=== PATIENT | male | born 1985 | race Caucasian/White ===

== ENCOUNTER → 2017-06-17 11:16 | Outpatient (CLI) | payer OTHER, SELFPAY ==
[2017-06-17 12:39] LABS: Erythrocyte Sedimentation Rate 11 mm/hr (0-15)
[2017-06-17 12:52] LABS: Rheumatoid Factor < 10.0 IU/mL (<15)
[2017-06-17 13:02] LABS: Vitamin D,25 Hydroxy 18.8 ng/mL (29.95-100.01)
[2017-06-18 12:08] LABS: SJOGREN'S Anti-SS-A test < 0.2 AI (0.0-0.9); SJOGREN'S Anti-SS-B test < 0.2 AI (0.0-0.9)
[2017-06-18 13:42] LABS: ANTINUCLEAR ANTIBODIES DIRECT Negative (Negative)
[2017-06-18 16:09] LABS: Cytoplasmic Ab (C-ANCA) <1:20 titer (Neg:<1:20)
[2017-06-19 09:02] LABS: Angiotensin Convert Enzyme 57 U/L (14-82); Perinuclear Ab (P-ANCA) <1:20 titer (Neg:<1:20)
== END ==
PROVIDERS: Family Provider Family Medicine; PCP Family Medicine; Visit Provider Psychiatry & Neurology Neurology
DX: H93.19 Tinnitus, unspecified ear (principal); Z79.899 Other long term (current) drug therapy
CPT/HCPCS: 36415; 82164; 82306; 85652; 86038; 86235; 86256; 86431

== ENCOUNTER → 2017-06-29 15:22 | Outpatient (CLI) | payer OTHER, SELFPAY ==
[2017-07-03 20:07] LABS: Lyme IgG P18 Ab Absent (.); Lyme IgG P23 Ab Absent (.); Lyme IgG P28 Ab Absent (.); Lyme IgG P30 Ab Absent (.); Lyme IgG P39 Ab Absent (.); Lyme IgG P41 Ab Present (.); Lyme IgG P45 Ab Absent (.); Lyme IgG P58 Ab Absent (.); Lyme IgG P66 Ab Absent (.); Lyme IgG P93 Ab Absent (.); Lyme IgM P23 Ab Absent (.); Lyme IgM P39 Ab Absent (.); Lyme IgM P41 Ab Absent (.)
[2017-07-04 08:04] LABS: Lyme IgG WB Interpretation Negative (.); Lyme IgM WB Interpretation Negative (.)
== END ==
PROVIDERS: Family Provider Family Medicine; PCP Family Medicine; Visit Provider Psychiatry & Neurology Neurology
DX: R93.0 Abnormal findings on diagnostic imaging of skull and head, not elsewhere classified (principal); H93.19 Tinnitus, unspecified ear
CPT/HCPCS: 36415; 86617

== ENCOUNTER → 2017-07-15 07:20 | Outpatient (CLI) | payer OTHER, SELFPAY ==
--- NOTE | 2017-07-15 07:26 | CT_ITS ---
STUDY: CTA OF THE BRAIN REASON FOR EXAM: Male, 32 years old. AVM RADIATION DOSAGE (If Supplied By Facility): CTDIvol = ( 17.65 ) mGy, DLP = ( 459.79 ) mGycm TECHNIQUE: CT angiography was performed with a multi-detector CT scanner. Data acquisition was obtained from the skull base through the vertex following intravenous administration of ml of . MIP images were reconstructed from the axial data set. Post-processing of the angiographic images was performed, with multiplanar reformation and 3D reconstruction. Individualized dose optimization techniques were used for this CT. COMPARISON: MRI 03/05/2017.. FINDINGS: Normal bilateral petrous carotid arteries. Normal right cavernous carotid artery with a normal supraclinoid bifurcation. Normal left cavernous carotid artery with a normal supraclinoid bifurcation. Normal right A1 segments of the anterior cerebral artery. Normal left A1 segments of the anterior cerebral artery. Normal intact anterior communicating artery (ACOM). Normal bilateral A2 segments of the anterior cerebral arteries. Normal right M1 and M2 segments of the middle cerebral arteries, with a normal M1 bifurcation. Normal left M1 and M2 segments of the middle cerebral arteries, with a normal M1 bifurcation. Normal right posterior communicating artery (PCOM). Normal left posterior communicating artery (PCOM). Normal bilateral vertebral arteries. Normal basilar artery with a normal basilar bifurcation. The visualized bilateral superior cerebellar (SCA) arteries are normal. Normal bilateral P1, P2 and visualized P3 segments of the posterior cerebral arteries. There is no demonstrated aneurysm of the [place]. There is no demonstrated abnormality of the visualized brain. CT/CTA Head W/WO Contrast IMPRESSION: Normal [place] without a demonstrated aneurysm or hemodynamically significant stenosis. Electronically Signed: Jean Salazar MD at 18:20 EDT , Service support ,
--- NOTE | 2017-07-15 07:26 | CT_ITS ---
STUDY: CTA NECK WITH CONTRAST REASON FOR EXAM: Male, 32 years old. Right ear tinnitis, r/o cascular malformation. RADIATION DOSAGE (If Supplied By Facility): CTDIvol = ( 24.97 ) mGy, DLP = ( 2435.74 ) mGycm TECHNIQUE: CT angiography with multi-detector data acquisition was performed from the aortic arch to the skull base following intravenous administration of 100 ml of Isovue 370 contrast. MIP images were reconstructed from the axial data set. Post-processing of the angiographic images was performed, with multiplanar reformation and 3D reconstruction. Individualized dose optimization techniques were used for this CT. COMPARISON: None. FINDINGS: AORTIC ARCH: Normal visualized aortic arch. Normal origins of the brachiocephalic, left common carotid, and left subclavian arteries. RIGHT CAROTID ARTERIES: Normal right common carotid artery (CCA). Normal right common carotid bulb. Normal origin of the right internal carotid (ICA) artery without a hemodynamically significant stenosis. Normal visualized cervical portion of the right internal carotid artery. Normal origin of the right external carotid artery (ECA). LEFT CAROTID ARTERIES: Normal left common carotid artery (CCA). Normal left common carotid bulb. Normal origin of the left internal carotid (ICA) artery without a hemodynamically significant stenosis. Normal visualized cervical portion of the left internal carotid artery. Normal origin of the left external carotid artery (ECA). VERTEBRAL ARTERIES: Limited evaluation of the distal vertebral and basilar arteries secondary to motion artifact. Otherwise unremarkable bilateral vertebral arteries. CT/CTA Neck W/WO Contrast IMPRESSION: No demonstrated vascular malformations. Electronically Signed: Reza Souza MD at 9:21 EDT Tel , Service support ,
--- NOTE | 2017-07-15 07:45 | MRI_ITS ---
STUDY: MRI CERVICAL SPINE WITH AND WITHOUT CONTRAST REASON FOR EXAM: Male, 32 years old. F/U TO MRI BRAIN WHICH SHOWED DEMYELINATION, C/O TINNITUS. TECHNIQUE: Standardized fat and water weighted pulse sequences were obtained in the sagittal and axial following I.V. administration of 10 ml of Gadavist contrast material. COMPARISON: None FINDINGS: Normal foramen magnum and brainstem-cervical cord junction. Normal craniovertebral junction. Normal anterior atlantoaxial articulation. Normal odontoid process. Normal cervical lordosis. Normal vertebral bodies and posterior osseous elements. C2-3: Normal endplates. Normal disc height, signal and morphology. Normal central canal and intervertebral neural foramina. C3-4: Normal endplates. Normal disc height, signal and morphology. Normal central canal and intervertebral neural foramina. C4-5: Normal endplates. Normal disc height, signal and morphology. Normal central canal and intervertebral neural foramina. C5-6: Normal endplates. Normal disc height, signal and morphology. Normal central canal and intervertebral neural foramina. C6-7: Normal endplates. Normal disc height, signal and morphology. Normal central canal and intervertebral neural foramina. C7-T1: Normal endplates. Normal disc height, signal and morphology. Normal central canal and intervertebral neural foramina. Normal cervical cord. Normal visualized soft tissue structures. MRI/Spine Cervical W/WO Contrast IMPRESSION: Normal unenhanced and enhanced MR examination of the cervical spine. Electronically Signed: Reza Souza MD at 9:17 EDT Tel , Service support ,
--- NOTE | 2017-07-15 07:45 | MRI_ITS ---
STUDY: MRI THORACIC SPINE WITH AND WITHOUT CONTRAST REASON FOR EXAM: Male, 32 years old. demyelination F/U TO MRI BRAIN WHICH SHOWED DEMYELINATION, C/O TINNITUS. TECHNIQUE: 10 ml of Gadavist was administered intravenously for the contrast portion of the examination. COMPARISON: None. FINDINGS: Normal kyphosis of the thoracic spine. There is no substantial scoliosis. T1-2, T2-3, T3-4, T4-5, T5-6, T7-8, T8-9, T9-10, T10-11, T11-12: There is disc space narrowing and endplate spondylosis without significant central canal or foraminal stenosis. At T6/T7 is moderate disc space narrowing and endplate spondylosis. There is a left paracentral protrusion which effaces the ventral thecal sac and indents the left spinal cord without increased cord signal. There is mild central canal stenosis. Normal visualized thoracic cord. The soft tissue structures are unremarkable. There is no enhancing abnormality. MRI/Spine Thoracic W/WO Contrast IMPRESSION: No spinal cord lesions. T6/T7: Left disc protrusion indenting the spinal cord. Electronically Signed: Reza Souza MD at 9:15 EDT Tel , Service support ,
== END ==
PROVIDERS: Family Provider Family Medicine; PCP Family Medicine; Visit Provider Psychiatry & Neurology Neurology
DX: H93.19 Tinnitus, unspecified ear (principal); R93.0 Abnormal findings on diagnostic imaging of skull and head, not elsewhere classified
CPT/HCPCS: 70496; 70498; 72156; 72157; A9585; Q9967; A4216

== ENCOUNTER → 2017-07-20 08:49 | Outpatient (CLI) | payer OTHER, SELFPAY ==
--- NOTE | 2017-07-20 | CYSPIN_PTH ---
PATIENT: GRICEL MONTOYA LOC: [facility] U#:[id number] AGE/SX: 40/M ROOM: RE07/20/[address]: Dr. Paras Griggs MD : 1985 BED: DIS: SPEC #: [id number] RECD: 07/20/17 12:03 STATUS: PACHECO ARIELLE #: [id number] JOHN: 07/20/17 00:[address]: Paras Griggs DEPT: CYTOLOGY RECD BY: Felice Bains ENTERED: 07/20/17 12:04 SP TYPE: CYSPIN FL OTHR DR: Dr. Baljit Rubalcava MD Tissues: Cerebrospinal Fluid Procedures: Pap Stain (control) Special Stain Group II Cytospin Fluid HEADER OPERATION: Not noted PRE-OP DIAGNOSIS: Vascular malformation TISSUE SUBMITTED: Cerebrospinal fluid for cytology DIAGNOSIS CYTOLOGY Cerebrospinal fluid for cytology (cytospin): Negative for malignant cells. See cytology study and comment. SJ:loyda 07/21/17 COMMENT Clinical correlation and appropriate follow up are necessary. CYTOLOGY STUDY Slides are reviewed. The specimen is paucicellular and consists of lymphocytes and monocytes. CYTOLOGY GROSS Received is .25 ml of clear fluid labeled with the patient's name and and designated per the requisition as CSF. Submitted for cytology preparation. / Diego 07/20/17 TC:4 [facility]: [id number]
[2017-07-20 09:10] VITALS: BP 144/83; PULSE 72; RESP 18; TEMP 37; O2SAT 98; BMI 30.2
[2017-07-20 09:34] LABS: Oligoclonal Banding REF LAB
--- NOTE | 2017-07-20 09:50 | RAD_ITS ---
STUDY: FLUOROSCOPICALLY GUIDED LUMBAR PUNCTURE REASON FOR EXAM: Male, 32 years old. Headaches, weakness, abnormal MRI RADIATION DOSAGE (If Supplied By Facility): CTDIvol = ( ) mGy, DLP = ( ) mGycm. Individualized dose optimization techniques were used for this CT.? FLUOROSCOPY TIME (if supplied): (0:15) minutes/seconds, one fluoroscopic image obtained TECHNIQUE: Fluoroscopically guided COMPARISON: None. FINDINGS: After informed consent was obtained, patient was placed in the prone position on the fluoroscopic table, an appropriate site for lumbar puncture was determined using fluoroscopic guidance posterior to L3-4. The area was prepped and draped in a sterile manner, and 2% Xylocaine was used as local anesthetic. Under fluoroscopic guidance, a 22-gauge spinal needle was advanced into the central canal. Clear CSF return was noted and approximately 8 mL of clear CSF was obtained and preserved in chest tubes to be sent to lab per ordering physician's instructions. Patient tolerated the procedure well. However, there was some blotchiness noted on the patient's hands and face and 50 mg Benadryl by mouth was given. The Benadryl alleviated the blotchiness noted on the hands but not on the face. After one hour observation, patient was discharged to home as there was no itchiness, coughing, swelling, or difficulty breathing experienced by the patient. He was instructed to return to the emergency room if any of the above symptoms should appear. RAD/Fluoro Guided Lumbar Puncture IMPRESSION: Successful fluoroscopically guided lumbar puncture Electronically Signed: Andrzej Young MD at 11:10 EDT , Service support ,
[2017-07-20 10:15] VITALS: BP 140/82; PULSE 69; RESP 18; O2SAT 98
[2017-07-20] MEDS: DiphenhydrAMINE 25 MG Capsule 50 MG PO (10:15)
[2017-07-20 10:24] LABS: Cytology, Body Fluid / CSF SEE PATHOLOGY REPORT
[2017-07-20 10:45] VITALS: BP 133/84; PULSE 69; RESP 16; O2SAT 98
[2017-07-20 10:50] LABS: Glucose Spinal Fluid 54 mg/dL (40-75)
[2017-07-20 10:51] LABS: Body Fluid Mononuclear WBC # 0.002 10^3/uL; Body Fluid Mononuclear WBC % 66.7 %; Body Fluid Polynuclear WBC # 0.001 10^3/uL; Body Fluid Polynuclear WBC % 33.3 %; Total Cell Count CSF 0.003 10^3/uL (0.000-0.000); White Count, CSF 0.003 10^3/uL (0.000-0.000)
[2017-07-20 11:15] VITALS: BP 132/80; PULSE 74; RESP 18; O2SAT 99
--- NOTE | 2017-07-20 11:32 | NURSING ---
1015 face bright red and spots on bilateral hands bright red, procedure done, patient said he feels hot, verbal order from DR. Naylor for oral benedryl - will give when arrives from pharmacy, not trouble breathing, family at bedside, patient aware of adverse reaction to lidocain sq.
[2017-07-20 12:40] LABS: Auto B Fluid Analyzer BKGD Ct COUNTS W/IN LIMITS (W/IN LIMITS); CSF Color COLORLESS (Colorless); Lymphocytes,CSF 60 % (40 - 80); Neutrophils,CSF 40 % (0 - 6); Tested Tube # 4
[2017-07-20 12:41] LABS: Appearance CSF (character) CLEAR (Clear); Body Fluid QC Type(s) BF1Q; RBC Count, Spinal Fluid 2 /mm-3 (None seen)
[2017-07-21 14:22] LABS: Pathologist Review Reviewed
[2017-07-26 03:06] LABS: CSF Albumin 27 mg/dL (11-48); CSF IgG 4.1 mg/dL (0.0-8.6); CSF IgG Index 0.4 (0.0-0.7); HSV 1 By PCR Negative (Negative); IgG Serum 1587 mg/dL (700-1600); IgG Synthesis Rate, CSF -5.8 mg/day (-9.9 TO +3.3); IgG/Alb Ratio, CSF 0.15 (0.00-0.25); Serum Albumin 4.7 g/dL (3.5-5.5)
[2017-07-26 09:24] LABS: CMV by PCR Negative (Negative); CSF:Serum Albumin Index 6 (0-8); HSV 2 By PCR Negative (Negative); Myelin Basic Protein, MBP 1.7 ng/mL (0.0-1.2)
== END ==
PROVIDERS: Family Provider Family Medicine; PCP Family Medicine; Visit Provider Psychiatry & Neurology Neurology
DX: H93.19 Tinnitus, unspecified ear (principal); R93.0 Abnormal findings on diagnostic imaging of skull and head, not elsewhere classified
CPT/HCPCS: 62270; 77003; 82040; 82042; 82784; 82945; 83873; 83916; 84157; 87205; 87496; 87529; 87798; 88108; 88313; 89050; 89051

== ENCOUNTER 2021-01-01 12:42 | Day surgery (SDC) | payer OTHER, SELFPAY ==
[2021-01-01 13:25] VITALS: BP 150/96; RESP 16; TEMP 37; O2SAT 99; BMI 31.3
[2021-01-01] MEDS: Lactated Ringers 1,000 ML 100 ML IV ×2 (13:32→17:09)
--- NOTE | 2021-01-01 15:11 | PCM.DC ---
Discharge Instructions Diet Discharge Diet: No restrictions Activity Discharge Activity: Return to Normal Activity Dressing / Incision Additional Dressing/Incision Instructions:: keep the abutment dry until seen in clinic Follow Up Care Please Follow Up With: oswald When: 1 week Test Results: Test results from this visit will be discussed in further detail at your follow-up appointment, if applicable. Discharge Plan Admission Attending Provider: Mark Quesada Primary Care Provider: Baljit Rubalcava Discharge Orders/Prescriptions Prescriptions: No Action loratadine [Allergy Relief (loratadine)] 10 MG tablet 10 mg PO DAILY PRN (Reason: Allergies) RF: 0 hydrochlorothiazide 12.5 mg tablet 12.5 mg PO DAILY RF: 0 Disposition Discharge Orders: Discharge Patient (Routine); Ordered 01/01/21 Ordered By: Dr. Mark Quesada
--- NOTE | 2021-01-01 15:12 | PCM.OPRPT ---
Problems Associated Problem List Diagnoses (1) Deafness in right ear: Report of Operation Date of Procedure: 01/01/21 Pre-Operative Diagnosis: 1. right deafness Post-Operative Diagnosis: 1. right deafness Surgery/Procedure Performed:: bone anchored hearing aid, right Surgeon: Mark Quesada Type of Anesthesia: General Description of Procedure: on the day of the procedure, after appropriate informed consent was obtained, the patient was brought to the operating room and placed in supine position on the operating table. he was placed under general endotracheal anesthesia by the anesthesiologist. the right postauricular area was shaved and prepped / draped. the skin thickness was measured to be 10 mm, thus a 14mm abutment was deemed necessary. the abutment area was marked 55 mm from his external auditory canal. 1cm anterior to this, a 3cm incision was made with a 15 blade. the periosteum was exposed and subcutaneous flaps were made with the iris. a weitlaner was used to retract. a cruciate incision was made in the periosteum. the 4mm drill bit with the 3mm guard was used. the defect was palpated and no dura was felt. the guard was removed and the 4mm drill bit was used. again, no dura was palpated. the 14mm abutment with 4mm implant was opened and loaded. using the correct drill speed, it was inserted into place with a very snug fit. given the patient's very thick skin, the posterior portion of the incision was debulked with the bovie. a biopsy punch was used to place a defect 5mm posterior to the incision, and the abutment was poked through the skin. the incision was closed with 3-0 prolene. a healing cap with allevyn was placed. the patient was awoken from anesthesia and transferred to the PACU in stable condition.
[2021-01-01 16:21] VITALS: BP 143/106; BP 150/96; PULSE 101; RESP 18; TEMP 36.1; O2SAT 95
[2021-01-01 16:30] VITALS: BP 127/89; BP 150/96; PULSE 101; RESP 16; O2SAT 96
[2021-01-01 16:44] VITALS: BP 132/94; BP 150/96; PULSE 94; RESP 16; TEMP 35.9; O2SAT 94
[2021-01-01] MEDS: Acetaminophen/Codeine #3 Tablet 1 TABLET PO (17:08)
[2021-01-01 17:33] VITALS: BP 123/87; BP 150/96; PULSE 78; RESP 16; TEMP 36.1; O2SAT 97
== END 2021-01-01 17:43 | disposition home or self-care (01) ==
LOC: SDC 12:44 → AC 12:46
PROVIDERS: PCP Family Medicine; Referring Provider Otolaryngology; Visit Provider Otolaryngology
PROC: (CPT 69710; principal; 2021-01-01 14:05)
DX: H90.41 Sensorineural hearing loss, unilateral, right ear, with unrestricted hearing on the contralateral side (principal); H93.13 Tinnitus, bilateral; Z79.899 Other long term (current) drug therapy
CPT/HCPCS: 69714; J7120; J2405

== ENCOUNTER 2021-04-15 15:18 | Outpatient (CLI) | payer OTHER, SELFPAY | END 2021-04-15 23:59 | disposition short-term general hospital (02) | LOC: LABSPEC 15:19 | PROVIDERS: PCP Family Medicine; Visit Provider Otolaryngology | DX: L03.90 Cellulitis, unspecified (principal) | CPT/HCPCS: 87070; 87205 ==

== ENCOUNTER → 2021-07-26 | Outpatient (CLI) | payer OTHER, SELFPAY ==
[2021-07-26 10:57] LABS: EXAGEN MAILED SPECIMEN
[2021-07-26 12:32] LABS: Absolute Neutrophil Count 4.7 X10^3/uL (2.0-7.7); Basophil# 0.04 X10^3/uL; Basophil% 0.6 % (0-1); Color, Urine Yellow (Yellow); Eosinophil# 0.09 X10^3/uL; Eosinophils% 1.3 % (0-5); Glucose, Dipstick Normal (Normal); Hemoglobin 17.6 g/dL (13.0-16.5); Ketone-Dipstick Negative (Negative); Leukocyte Esterase-Dipstick Negative /ul (Negative); Lymphocyte % 25.4 % (19-41); Mean Corp Hgb Conc 33.8 g/dL (32-36); Mean Corpuscular Hgb 30.7 pg (27.0-32.0); Mean Corpuscular Volume 90.8 fL (80-94); Mean Platelet Vol. 10.2 fl (6.2-12.0); Monocyte# 0.42 X10^3/uL; Monocyte% 5.9 % (0-10); NRBC Flagged by Analyzer 0 % (0-5); Neutrophil # 4.74 X10^3/uL (2.7-7.7); Neutrophil % 66.7 % (47-70); Nitrite-Dipstick Negative (Negative); Occult Blood-Urine Negative /ul (Negative); Platelet Count 241 K/mm3 (150-450); Protein-Dipstick Negative (Negative); RBC Distribution Width CV 12.2 % (11.6-14.6); RBC Distribution Width SD 40.4 fl (35.1-43.9); Red Blood Count 5.73 M/mm3 (4.6-6.2); Specific Gravity, Urine 1.015 (1.002-1.030); Urine Bilirubin Dipstick Negative (Negative); Urine Clarity Clear (Clear); Urine Urobilinogen Normal (Normal); White Blood Count 7.1 K/mm3 (4.4-11.0)
[2021-07-26 12:36] LABS: Prothrombin Time (Protime)PT. 12.6 SECONDS (11.7-14.9)
[2021-07-26 12:38] LABS: Partial Thromboplast Time 25.8 Seconds (24.1-36.2)
[2021-07-26 12:40] LABS: Protein, Urine (Random) 11.1 mg/dL (<11.9); Protein:Creat Ratio 104 mg/g CRE (0-200)
[2021-07-26 12:53] LABS: AST(SGOT) 50 U/L (15-37); Alanine Aminotransfer ALT/SGPT 98 U/L (16-61); Albumin, Serum 4.3 g/dL (3.2-5.0); Alkaline Phosphatase 86 U/L (45-117); Anion Gap 6 (5-15); BUN 11 mg/dL (7-18); BUN/Creat Ratio 11.2 RATIO (10-20); Chloride 107 mmol/L (98-107); Creatinine, Serum 0.98 mg/dL (0.70-1.30); EST Glomerular Filtration Rate 92 mL/min (>60); Est Glom Filt Rate - Afr Amer 112 mL/min (>60); Globulin 4.2 g/dL (2.2-4.2); Glucose 96 mg/dL (74-106); Potassium 4.1 mmol/L (3.5-5.1); Protein, Total 8.5 g/dL (6.4-8.2); Sodium Level 140 mmol/L (136-145)
[2021-07-28 01:06] LABS: Dilute Prothrombin Time (dPT) 39.5 sec (0.0-47.6); Dilute Russell Viper Venom 41.5 sec (0.0-47.0); Hexagonal Phase Phospholipid 6 sec (0-11); PTT-LA 33.5 sec (0.0-51.9); Thrombin Time 19.1 sec (0.0-23.0); dPT Confirm Ratio 1.19 Ratio (0.00-1.34)
[2021-07-29 12:28] LABS: Interpretation Comment: (.)
== END | disposition home or self-care (01) ==
LOC: MTLAB 09:52
PROVIDERS: PCP Family Medicine; Referring Provider Internal Medicine Rheumatology; Visit Provider Internal Medicine Rheumatology
DX: M06.4 Inflammatory polyarthropathy (principal); R76.8 Other specified abnormal immunological findings in serum; H93.13 Tinnitus, bilateral; H91.91 Unspecified hearing loss, right ear; J30.9 Allergic rhinitis, unspecified
CPT/HCPCS: 36415; 80053; 81002; 82570; 84156; 85025; 85598; 85610; 85670; 85730

== ENCOUNTER 2022-04-28 07:58 | Emergency (ER) | payer OTHER, SELFPAY ==
[2022-04-28 07:59] VITALS: BP 152/93; PULSE 133; RESP 18; TEMP 37.3; O2SAT 97; BMI 30.1
--- NOTE | 2022-04-28 08:24 | CT_ITS ---
INDICATION: headache EXAMINATION: CT BRAIN - CT Head or Brain W/O Contrast Injection TECHNIQUE: Multiple axial images were obtained of the head without intravenous contrast. A radiation dose optimization technique was used for this scan. IV Contrast dosage and agent: None. COMPARISON: MRI dated March 05, [address] dated July 15, 2017 FINDINGS: BRAIN PARENCHYMA: There are scattered foci of low attenuation within the white matter of the frontal, parietal and occipital lobes. No intra- or extra-axial hemorrhage. No evidence of acute infarct. No intracranial mass or mass effect. There is preservation of the garcia/white matter interface. Posterior fossa structures are unremarkable. CSF SPACES: Appropriate for age. No hydrocephalus. Basal cisterns are patent. CALVARIUM, SKULL BASE, PARANASAL SINUSES AND MASTOID AIR CELLS: Clear. No discrete lytic or blastic abnormalities. There is a partially subcutaneous rounded metallic density extending into the right temporal bone and skin surface with no associated inflammation. ORBITS: Both globes, extraocular muscles, optic nerves and retrobulbar fat appear unremarkable. CT/Brain/Head without Contrast IMPRESSION: No acute intracranial process. Scattered white matter low attenuation foci, may be secondary to an inflammatory, infectious, prior ischemic and/or demyelinating process. Electronically Signed: Marcia Betancur MD at 9:55 EST ,
--- NOTE | 2022-04-28 08:24 | EKG12_ITS ---
Test Reason : GENERAL Blood Pressure : / mmHG Vent. Rate : 116 BPM Atrial Rate : 116 BPM P-R Int : 160 ms QRS Dur : 076 ms QT Int : 308 ms P-R-T Axes : 036 011 013 degrees QTc Int : 428 ms Sinus tachycardia Otherwise normal ECG Confirmed by MARTINE HODGSON, YSABEL ([id number]), copy editor CARLEEN NEUMANN ([id number]) on 04/29/2022 8:36:29 AM Referred By: Confirmed By:YSABEL FARLEY MD
--- NOTE | 2022-04-28 08:25 | EDS_ITS ---
HPI History of Present Illness Chief Complaint: General Illness Informant: patient and spouse/S.O. Onset/Context/Timing Onset: Days (4 days) Context: Gradual Onset Narrative Narrative: Patient presents with 4-day history of headache. He points the area just behind his eyes. He states first 3 days he was able to get it relieved with Tylenol or Excedrin. Last evening he was not able to get any relief from his headache was not able to sleep. He does have light sensitivity and nausea. He made himself vomit once last evening. He reports having a brief temperature up to 102 earlier this morning. He noted his heart rate was in the 130s on his Fitbit which is not normal for him. He states last evening he had brief pain in the right flank area that now seems to be resolved. One of his children had a fever late last week, however the patient was out of town at the time and was not directly exposed. [facility] Medical History Alcohol use Loss of hearing Ringing in ears Home Medications loratadine 10 mg tablet (Allergy Relief (loratadine)) 10 mg PO DAILY PRN Allergies 09/15/15 [History Last Taken Unknown] hydrochlorothiazide 12.5 mg tablet 12.5 mg PO DAILY 12/25/20 [History Last Taken Unknown] Allergy/AdvReac Type Severity Reaction Status Date / Time lidocaine AdvReac Rash Verified 04/28/22 08:04 Surgical History History of ERCP History of tonsillectomy and adenoidectomy Hx laparoscopic cholecystectomy Hx of vasectomy Social History Smoking Status: Never smoker ROS ROS ED Constitutional Constitutional ED: Reports fever(s); Denies chills Eyes Eyes: Denies change in vision or discharge from eye(s) ENT ENT ED: Denies discharge from eye(s), rhinorrhea or sore throat Cardiovascular Cardiovascular: Denies chest pain or palpitations Respiratory/Chest Respiratory/Chest: Denies cough or dyspnea Gastrointestinal Gastrointestinal: Reports abdominal pain, nausea and vomiting; Denies diarrhea Genitourinary Genitourinary ED: Denies difficulty urinating or dysuria Musculoskeletal Musculoskeletal: Denies back pain or extremity pain Integumentary Denies Abrasions or rash Neurologic Neurologic: Reports headache(s); Denies weakness Psychiatric Psychiatric: Denies anxiety or depression Allergic/Immunologic Allergic/Immunologic ED: Denies lip swelling or urticaria EXAM Physical Exam Const Vital Signs: 04/28/22 07:59 04/28/22 07:58 Temperature 99.1 F Temperature Source Temporal Pulse Rate 133 H Respiratory Rate 18 Respiratory Effort Normal Respiratory Pattern Normal Blood Pressure 152/93 H Blood Pressure Mean 112 Pulse Ox 97 Oxygen Delivery Method Room Air Positive well nourished and well developed General Appearance ED: well developed HEENT Reports normocephalic and head/scalp atraumatic Eyes PERRL and EOMs intact bilaterally Neck supple Chest Wall inspection of chest normal and palpation of chest normal Resp normal respiratory effort and clear to auscultation bilaterally Cardio regular rate and regular rhythm GI normal to inspection, nondistended, normoactive bowel sounds Palpation: soft Extremity normal to inspection Neuro oriented x3 and no sensory deficits noted Sensorium / Orientation: alert Motor Exam: strength 5/5 throughout Psych mental status grossly normal Skin no rashes or lesions noted MDM MDM MDM Narrative Medical decision making narrative: Patient placed on case monitor given his recent tachycardia. EKG obtained to evaluate for arrhythmia. Lab work obtained to evaluate for electrolyte disturbance and leukocytosis. Urinalysis obtained given flank pain and fever. Swab for COVID and influenza obtained. Patient given Toradol, Reglan, Benadryl, IV fluids. CT head obtained given headaches without significant history of migraines. Lab Data Attestation: I reviewed the patient's lab results. Labs: Laboratory Results - last 24 hr 04/28/22 04/28/22 04/28/22 09:00 09:00 09:00 WBC 20.7 H RBC 5.37 Hgb 16.4 Hct 47.6 MCV 88.6 MCH 30.5 MCHC 34.5 RDW Std Deviation 38.4 RDW Coeff of Meri 11.9 Plt Count 216 MPV 9.7 Immature Gran % (Auto) 0.600 Neut % (Auto) 86.2 H Lymph % (Auto) 7.6 L [place] % (Auto) 5.3 Eos % (Auto) 0.0 Baso % (Auto) 0.3 Absolute Neuts (auto) 17.9 H Absolute Lymphs (auto) 1.58 Nucleated RBC % 0 Sodium 138 Potassium 4.1 Chloride 107 Carbon Dioxide 24.0 Anion Gap 7 BUN 16 Creatinine 1.23 Estim Creat Clear Calc 86.55 Est GFR (MDRD) Af Amer 86 Est GFR (MDRD) Non-Af 71 BUN/Creatinine Ratio 13.0 Glucose 126 H Calcium 9.2 Total Bilirubin 2.40 H Direct Bilirubin 0.36 H AST 28 ALT 65 H Alkaline Phosphatase 87 Total Protein 7.9 Albumin 3.8 Globulin 4.1 TSH 0.53 Urine Color Yellow Urine Clarity Clear Urine pH 6.0 Ur Specific [place] 1.005 Urine Protein Negative Urine Glucose (UA) Normal Urine Ketones Negative Urine Occult Blood Negative Urine Nitrite Negative Urine Bilirubin Negative Urine Urobilinogen Normal Ur Leukocyte Esterase Negative Urine RBC 0 SEEN Urine WBC 0 SEEN Ur Squamous Epith Cells 0 SEEN Urine Bacteria 0 SEEN Urine Mucus 0 SEEN Radiography Diagnostic Testing: Clinical Impression(s) from Imaging Studies Brain CT 04/28/22 08:24 IMPRESSION: No acute intracranial process. Scattered white matter low attenuation foci, may be secondary to an inflammatory, infectious, prior ischemic and/or demyelinating process. Electronically Signed: Marcia Betancur MD at 9:55 EST , EKG Initial EKG: Attestation: I personally reviewed and interpreted this EKG as follows: Interpretation: Sinus Tachycardia (Sinus tach at 116 with no acute ischemia.) Treatment and Re-Evaluation Narrative: CBC was white count elevated at 20.7 with 86% neutrophils. Chemistry studies largely unremarkable. LFTs significant for total bili of 2.4 direct bili 0.36. He had a prior cholecystectomy and has no focal right upper quadrant tenderness. His TSH is normal. Urinalysis reveals no infection. EKG is sinus tach with no ischemia. CT scan of the head reveals no acute intracranial process, however scattered white matter low-attenuation foci are noted which may be secondary to inflammatory, infectious, prior ischemic or demyelinating process. I did note patient had had prior CTs and MRIs with similar findings. This was discussed at length with he and at bedside. He had initially been told at 1 point that he may have MS, however follow-up with [facility] noted that these changes were secondary to stress and inflammation. It does not appear that they are new or significantly different. At this time patient states his headache is completely resolved and he feels well. He is able to turn his head side to side and tuck his chin without difficulty. There is no sign of meningismus. Patient is comfortable with discharge to home and close follow-up with his primary care physician. Return instructions have been given. Discharge Plan Triage Chief Complaint: General Illness ED Provider: Jennifer Christy Dx/Rx/DC Orders Clinical Impression: Viral syndrome, Migraine Instructions: ED, Migraine (Classical), ED Viral Syndrome (Adult) Prescriptions: No Action loratadine [Allergy Relief (loratadine)] 10 MG tablet 10 mg PO DAILY PRN (Reason: Allergies) Label Comments: allergies hydrochlorothiazide 12.5 mg tablet 12.5 mg PO DAILY Label Comments: TAKE 1 TABLET BY MOUTH EVERY DAY Primary Care Provider: Baljit Rubalcava Referrals: Baljit Rubalcava MD [Primary Care Provider] - Keep Miladys appointment Disposition Disposition: Home, Self Care
[2022-04-28] MEDS: Ketorolac 30 MG/ML Syringe IV (08:51)
[2022-04-28] MEDS: DiphenhydrAMINE 50 MG/ML Syringe 25 MG IV (08:52)
[2022-04-28] MEDS: 0.9% Normal Saline 1,000 ML 1000 ML IV (08:52)
[2022-04-28] MEDS: Metoclopramide 10 MG/2 ML Vial IV (08:56)
[2022-04-28 09:06] LABS: Bacteria 0 SEEN /hpf (None Seen); Mucous, Urine 0 SEEN /hpf (<or=2+); Red Blood Cells-Urine 0 SEEN /hpf (0-5); Squamous Epithelial Cells - UA 0 SEEN /hpf (0-5); White Blood Cells 0 SEEN /hpf (0-5)
[2022-04-28 09:07] LABS: Color, Urine Yellow (Yellow); Glucose, Dipstick Normal (Normal); Ketone-Dipstick Negative (Negative); Leukocyte Esterase-Dipstick Negative /ul (Negative); Nitrite-Dipstick Negative (Negative); Occult Blood-Urine Negative /ul (Negative); Protein-Dipstick Negative (Negative); Specific Gravity, Urine 1.005 (1.002-1.030); Urine Bilirubin Dipstick Negative (Negative); Urine Clarity Clear (Clear); Urine Urobilinogen Normal (Normal)
[2022-04-28 09:09] LABS: Absolute Lymphocyte Count 1.58 X10^3/uL (0.83-4.51); Absolute Neutrophil Count 17.9 X10^3/uL (2.0-7.7); Basophil# 0.06 X10^3/uL; Basophil% 0.3 % (0-1); Eosinophil# 0.01 X10^3/uL; Hematocrit 47.6 % (40-54); Hemoglobin 16.4 g/dL (13.0-16.5); Lymphocyte # 1.58 X10^3/ul (0.83-4.51); Lymphocyte % 7.6 % (19-41); Mean Corp Hgb Conc 34.5 g/dL (32-36); Mean Corpuscular Hgb 30.5 pg (27.0-32.0); Mean Corpuscular Volume 88.6 fL (80-94); Mean Platelet Vol. 9.7 fl (6.2-12.0); Monocyte% 5.3 % (0-10); NRBC Flagged by Analyzer 0 % (0-5); Neutrophil # 17.86 X10^3/uL (2.7-7.7); Neutrophil % 86.2 % (47-70); Platelet Count 216 K/mm3 (150-450); RBC Distribution Width CV 11.9 % (11.6-14.6); RBC Distribution Width SD 38.4 fl (35.1-43.9); Red Blood Count 5.37 M/mm3 (4.6-6.2); White Blood Count 20.7 K/mm3 (4.4-11.0)
[2022-04-28 09:41] LABS: AST(SGOT) 28 U/L (15-37); Alanine Aminotransfer ALT/SGPT 65 U/L (16-61); Albumin, Serum 3.8 g/dL (3.2-5.0); Alkaline Phosphatase 87 U/L (45-117); Anion Gap 7 (5-15); BUN 16 mg/dL (7-18); Bilirubin, Direct 0.36 mg/dL (0.00-0.30); Calcium,Total 9.2 mg/dL (8.5-10.1); Chloride 107 mmol/L (98-107); Creatinine, Serum 1.23 mg/dL (0.70-1.30); EST Glomerular Filtration Rate 71 mL/min (>60); Est Glom Filt Rate - Afr Amer 86 mL/min (>60); Estimated Creatinine Clearance 86.55 ml/min; Globulin 4.1 g/dL (2.2-4.2); Glucose 126 mg/dL (74-106); Potassium 4.1 mmol/L (3.5-5.1); Protein, Total 7.9 g/dL (6.4-8.2); Sodium Level 138 mmol/L (136-145); Thyroid Stim Hormone (TSH) 0.53 uIU/mL (0.358-3.74)
[2022-04-28 10:32] VITALS: BP 134/78; PULSE 78; RESP 16; O2SAT 98
== END 2022-04-28 10:48 | disposition home or self-care (01) ==
PROVIDERS: Emergency Provider Emergency Medicine; PCP Family Medicine; Visit Provider Emergency Medicine
DX: G43.909 Migraine, unspecified, not intractable, without status migrainosus (principal); B34.9 Viral infection, unspecified; R10.9 Unspecified abdominal pain; R50.9 Fever, unspecified; Z20.822 Contact with and (suspected) exposure to COVID-19
CPT/HCPCS: 70450; 80048; 80076; 81001; 84443; 85025; 87428; 93005; 96361; 96374; 96375; 99284; J7030; A4216